=== PATIENT | female | born 1985 | race Caucasian/White ===

== ENCOUNTER 2023-07-08 05:46 | Day surgery (SDC) | payer BC ==
[2023-07-01 14:10] VITALS: BMI 22.8
[2023-07-08] MEDS ORDERED: EPINEPHrine 1 MG/ML VIAL ONE (06:21)
[2023-07-08] MEDS ORDERED: Thrombin 5000 UNITS/5 ML VIAL ONE (06:22)
[2023-07-08] MEDS ORDERED: Bupivacaine PF 0.5% 30 ML VIAL ONE (06:22)
[2023-07-08] MEDS ORDERED: CEFAZOLIN 2 GM VIAL ONE ×2 (06:45→12:29)
[2023-07-08] MEDS ORDERED: Sodium Chloride 0.9% 100 ML ONE ×2 (06:46→12:29)
[2023-07-08] MEDS ORDERED: Midazolam HCl 2 mg/2 ml Vial ONE (06:55)
[2023-07-08] MEDS ORDERED: fentaNYL PF 100 MCG/2 ML SYRINGE ONE (07:03)
[2023-07-08] MEDS ORDERED: Dexmedetomidine 200 MCG/2 ML VIAL ONE (07:03)
[2023-07-08] MEDS ORDERED: Propofol 1,000 MG/100 ML VIAL IV ONE (07:03)
[2023-07-08] MEDS ORDERED: Magnesium 5 GM/10 ML VIAL ONE (07:03)
[2023-07-08] MEDS ORDERED: Dexamethasone 20 MG/5 ML VIAL ONE (07:16)
[2023-07-08] MEDS ORDERED: PHENYLEPHRINE-NS 100 MCG/ML 10 ML SYRINGE ONE ×3 (07:16→09:29)
[2023-07-08] MEDS ORDERED: Glycopyrrolate 0.2 MG/ML 5 ML SYRINGE ONE (07:16)
[2023-07-08] MEDS ORDERED: Ondansetron PF 4 MG/2 ML Vial ONE (07:16)
[2023-07-08] MEDS ORDERED: Rocuronium Bromide 10 MG/ML (10ML VIAL) ONE (07:16)
[2023-07-08] MEDS ORDERED: ePHEDrine Sulfate 50 MG/10 ML VIAL ONE (07:16)
[2023-07-08] MEDS ORDERED: NEOSTIGMINE 3 MG/3 ML SYR 3 MG/3 ML SYRINGE ONE (07:16)
[2023-07-08] MEDS ORDERED: PROPOFOL 200 MG/20 ML VIAL ONE (07:16)
[2023-07-08] MEDS ORDERED: Phenylephrine 10 MG/ML VIAL ONE (08:40)
[2023-07-08] MEDS ORDERED: fentaNYL 50 mcg/mL 1 mL Vial ONE ×2 (09:59→10:17)
[2023-07-08] MEDS ORDERED: HYDROcodone/Acetaminophen 5/325 mg Tablet ONE (11:54)
== END 2023-07-08 13:00 | disposition home or self-care (01) ==
LOC: SDC 05:46
PROVIDERS: ATTEND Neurological Surgery
PROC: 0SG3071 Fusion of Lumbosacral Joint with Autologous Tissue Substitute, Posterior Approach, Posterior Column, Open Approach (ICD-10-PCS; principal; 2023-07-08)
DX: M43.17 Spondylolisthesis, lumbosacral region (principal); M54.16 Radiculopathy, lumbar region; F32.A Depression, unspecified; Z79.899 Other long term (current) drug therapy
CPT/HCPCS: C1713; C1889; J0171; J1100; J2250; J2370; J2405; J2704; J3010; J3475; J3490; S0020

== ENCOUNTER 2023-07-19 16:13 | Outpatient (CLI) | payer BC | END 2023-07-19 16:14 | disposition home or self-care (01) | LOC: ULT 16:13 | PROVIDERS: ATTEND Student in an Organized Health Care Education/Training Program | DX: E04.0 Nontoxic diffuse goiter (principal); E06.9 Thyroiditis, unspecified; E07.89 Other specified disorders of thyroid | CPT/HCPCS: 76536 ==